=== PATIENT | male | born 1965 | race Caucasian/White ===

== ENCOUNTER 2016-06-12 12:23 | Emergency (ER) | payer MEDICARE ==
[2016-06-12 12:36] VITALS: BP 125/80
[2016-06-12] MEDS ORDERED: DIAZEPAM 5 MG TABLET PO ONE (13:15)
[2016-06-12] MEDS ORDERED: KETOROLAC TROMETHAMINE 60 MG/2 ML SDV IM ONE (13:15)
--- NOTE | 2016-06-12 13:22 | ER Document Report ---
ED Neck/Back Problem - General Chief Complaint: Back Pain Stated Complaint: BACK PAIN Mode of Arrival: Ambulatory Information source: Patient TRAVEL OUTSIDE OF THE [place] IN LAST 30 DAYS: No - HPI Patient complains to provider of: Pain Notes: Patient arrives with complaints of back pain. The patient states that he has a history of chronic back pain. He was taking 30 mg OxyContin and gabapentin for his chronic pain. This was prescribed by a physician in [place]. He states that he moved to [place] 3 weeks ago does not have a doctor and has not been on any of his medications. He denies any new injuries or falls. He denies any bowel or bladder dysfunction. He denies blood thinners. He denies IV drug use. No fever. No difficulty controlling his bowels or his bladder. No dysuria or hematuria. No abdominal pain. No nausea vomiting or diarrhea. No chest pain or shortness of breath. Patient states he went to urgent care earlier today, they were unable to help him with anything. He was given a follow-up appointment with primary care next week. He denies any other complaints at this time. - Related Data Allergies/Adverse Reactions: No Known Allergies Allergy (Verified 06/12/16 12:34) Past Medical History - Social History Smoking Status: Unknown if Ever Smoked Family History: Reviewed & Not Pertinent Patient has suicidal ideation: No Patient has homicidal ideation: No Renal/ Medical History: Denies: Hx Peritoneal Dialysis Review of Systems - Review of Systems -: Yes All other systems reviewed and negative Physical Exam - Vital signs Vitals: Temp Pulse Resp BP Pulse Ox 97.9 F 95 17 125/80 97 06/12/16 12:29 06/12/16 12:29 06/12/16 12:29 06/12/16 12:29 06/12/16 12:29 - Notes Notes: GENERAL: alert, cooperative, nontoxic, no distress. HEAD: normocephalic, atraumatic EYES: conjunctiva pink without discharge, no external redness or swelling. EARS: no external swelling, no external redness NOSE: atraumatic, no external swelling MOUTH/THROAT: mucous membranes moist and pink, posterior pharynx without erythema, swelling, exudate. No trismus or drooling. NECK: soft, supple, full range of motion, no meningismus. CHEST: no distress, lungs clear and equal throughout. No wheezing, rales, rhonchi. CARDIAC: regular rate and rhythm, no murmur, normal capillary refill, normal pulses. No peripheral edema noted. ABDOMEN: soft, nontender, no pusatile mass. BACK: Patient has mild tenderness to palpation of the lumbar paraspinal muscles. No redness or swelling. No rash. No midline tenderness step-off or crepitus to palpation. EXTREMITIES: full range of motion of all extremities. No redness, no swelling. NEURO: alert and oriented 3, no focal deficits, full range of motion of all extremities. 5 out of 5 flexion and extension of the lower extremities bilaterally. Patellar and Achilles deep tendon reflexes are +2 bilaterally. Normal sensation with no saddle anesthesia. PYSCH: appropriate mood, affect. Patient is cooperative. SKIN: pink, warm, dry, no rash. Course - Re-evaluation Re-evalutation: 06/12/16 13:18 Patient is nontoxic appearing with stable vitals. The patient has chronic back pain. He was on 30 mg OxyContin until approximately 3 weeks ago when he moved to [place] from [place]. He does not have a physician here. Having increasing pain at this time. He denies any injury. He has no sign or risk of cauda equina or epidural abscess or bleed. The patient was seen by urgent care , they made a primary care appointment for him next week, so he came in the emergency department to get relief of his pain. The patient is noted to have elevated blood pressure during today's emergency department visit. The patient was informed of this finding. The patient was instructed that this may be related to pre-hypertension and requires further evaluation with a primary care provider. The patient has no hypertensive symptoms at this time. The patient's emergency department workup and current diagnosis were explained to the patient and or family. Follow-up instructions were provided. Medications if prescribed were discussed. Instructions for when to return to the emergency department including specific worrisome symptoms were discussed with the patient and/or family. - Vital Signs Vital signs: Temp Pulse Resp BP Pulse Ox 97.9 F 95 17 125/80 97 06/12/16 12:29 06/12/16 12:29 06/12/16 12:29 06/12/16 12:29 06/12/16 12:29 Discharge - Discharge Clinical Impression: Chronic back pain Qualifiers: Back pain location: low back pain Back pain laterality: unspecified Sciatica presence: without sciatica Qualified Code(s): M54.5 - Low back pain; G89.29 - Other chronic pain Condition: Stable Disposition: HOME, SELF-CARE Instructions: Low Back Pain ([facility]), Chronic Back Pain ([facility]), Chronic Pain Control ([facility]), Pain Management Additional Instructions: Take medications as prescribed. Get established with primary care at the next available appointment. Follow-up for increased pain, fever, difficult controlling her bowels or bladder, or any further concerns. Your blood pressure was elevated during today's visit. Have this rechecked with your doctor. Prescriptions: Diazepam [Valium 5 mg Tablet] 5 mg PO BIDP PRN #10 tablet PRN Reason: Diclofenac Sodium [Voltaren] 75 mg PO BID #20 tablet.dr Forms: Elevated Blood Pressure
== END 2016-06-12 13:20 | disposition home or self-care (01) ==
LOC: ER 12:23
DX: M54.5 Low back pain (principal); G89.29 Other chronic pain
CPT/HCPCS: 99283; 96372; A9270; J1885